=== PATIENT | female | born 1955 | race Hispanic/Latino ===

== ENCOUNTER → 2020-07-21 | Outpatient (CLI) | payer OTHER | END | disposition home or self-care (01) | LOC: RAH 11:20 | PROVIDERS: ATTEND Internal Medicine | DX: Z12.31 Encounter for screening mammogram for malignant neoplasm of breast (principal) | CPT/HCPCS: 77067 ==

== ENCOUNTER → 2021-07-04 | Outpatient (CLI) | payer OTHER | END | disposition home or self-care (01) | LOC: SHCH 12:49 | PROVIDERS: ATTEND Internal Medicine Cardiovascular Disease | DX: I87.2 Venous insufficiency (chronic) (peripheral) (principal); R06.09 Other forms of dyspnea; E78.5 Hyperlipidemia, unspecified; I10 Essential (primary) hypertension | CPT/HCPCS: 93306; 93356; 93970 ==

== ENCOUNTER → 2022-09-10 | Outpatient (CLI) | payer OTHER | END | disposition home or self-care (01) | LOC: RAH 10:24 | PROVIDERS: ATTEND Internal Medicine | DX: Z12.31 Encounter for screening mammogram for malignant neoplasm of breast (principal) | CPT/HCPCS: 77067 ==

== ENCOUNTER → 2022-09-30 | Outpatient (CLI) | payer OTHER | END | disposition home or self-care (01) | LOC: SHCH 13:47 | PROVIDERS: ATTEND Internal Medicine Cardiovascular Disease | DX: I87.2 Venous insufficiency (chronic) (peripheral) (principal) | CPT/HCPCS: 93970 ==

== ENCOUNTER → 2024-06-10 | Outpatient (CLI) | payer OTHER ==
--- NOTE | 2024-06-10 11:21 | HMCIMG ---
LUMBAR SPINE 2-3VWS HISTORY: Low back pain COMPARISON: None FINDINGS: 3 images of lumbar spine were obtained. Disc space narrowing is seen at L2-3 level. There is mild dextroscoliosis. Mild grade 1 anterolisthesis is seen at the L4-5 level. Bilateral iliac stents are seen. There are degenerative changes with lumbar spine spondylosis. There is straightening of normal lordotic curvature which may be related to muscle spasm or positioning. No loss of vertebral height is seen. No fracture or dislocation is seen. Degenerative changes are seen. IMPRESSION: 1. No fracture is seen. DJD with mild scoliosis.
--- NOTE | 2024-06-10 11:23 | HMCIMG ---
KNEE 3VWS RT HISTORY: Right knee pain COMPARISON: None TECHNIQUE: 3 images of right knee were obtained. 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 Clinical correlation is recommended for traumatic process. Right knee joint space narrowing is seen. There is no acute displaced fracture or dislocation. Degenerative changes are seen. IMPRESSION: 1. Findings as described above.
== END | disposition home or self-care (01) ==
LOC: RAH 09:43
PROVIDERS: ATTEND Internal Medicine
DX: M17.11 Unilateral primary osteoarthritis, right knee (principal); M47.816 Spondylosis without myelopathy or radiculopathy, lumbar region; M41.86 Other forms of scoliosis, lumbar region; M48.061 Spinal stenosis, lumbar region without neurogenic claudication; M54.50 Low back pain, unspecified; M25.561 Pain in right knee
CPT/HCPCS: 72100; 73562

== ENCOUNTER → 2024-09-13 | Outpatient (CLI) | payer OTHER ==
--- NOTE | 2024-09-13 11:36 | HMCIMG ---
MAMMO SCREENING BILATERAL HISTORY: Screening mammogram. COMPARISON: 09/11/2023 TECHNIQUE: Bilateral screening mammogram with CAD was performed with craniocaudal and mediolateral oblique projections. FINDINGS: There are scattered areas of fibroglandular density. There is no evidence of a dominant mass, or suspicious microcalcification. There is no evidence of nipple retraction or skin thickening. IMPRESSION: 1. Stable mammogram. Patient was entered into a reminder system with a target due date for their next mammogram. BI-RADS: CATEGORY 2: BENIGN FINDINGS Recommend monthly self breast exam as well as annual clinical examination. A negative x-ray should not delay biopsy if a dominant or clinically suspicious mass is present, since 8-10% of cancers are not identified by mammography. Dense breasts particularly, may obscure an underlying neoplasm. Some of these may be detected clinically and therefore, clinical examination is an essential part of breast evaluation.
== END | disposition home or self-care (01) ==
LOC: RAH 10:46
PROVIDERS: ATTEND Internal Medicine
DX: Z12.31 Encounter for screening mammogram for malignant neoplasm of breast (principal); R92.323 Mammographic fibroglandular density, bilateral breasts
CPT/HCPCS: 77067

== ENCOUNTER → 2024-12-14 | Outpatient (CLI) | payer OTHER ==
--- NOTE | 2024-12-14 09:37 | HMCIMG ---
BONE DENSITOMETRY: HISTORY: Age-related osteoporosis without current pathological fracture Comparison: none FINDINGS: Spine was not evaluated. Arterial BMD measured at Left Femoral Neck is 0.689 g/cm2 with a T-score of -1.6 Bone density is between 10 and 25% below young normal. This patient is considered osteopenic. Fracture risk is moderate. BMD measured at Left Femoral Total is 0.752 g/cm2 with a T-score of -1.6 Bone density is between 10 and 25% below young normal. This patient is considered osteopenic. Fracture risk is moderate. IMPRESSION: Osteopenia. Treatment and follow-up recommended.
== END | disposition home or self-care (01) ==
LOC: RAH 08:03
PROVIDERS: ATTEND Internal Medicine
DX: M85.852 Other specified disorders of bone density and structure, left thigh (principal); M81.0 Age-related osteoporosis without current pathological fracture; N95.9 Unspecified menopausal and perimenopausal disorder
CPT/HCPCS: 77080

== ENCOUNTER → 2025-06-03 | Outpatient (CLI) | payer OTHER ==
--- NOTE | 2025-06-03 13:28 | HMCIMG ---
EXAM: US Abdomen complete CLINICAL HISTORY: unspecified abdominal pain. TECHNIQUE: Real-time ultrasound of the abdomen (complete) with image documentation. COMPARISON: None provided. FINDINGS: LIVER: A left hepatic lobe anechoic structure is seen measuring 2.6 x 2.6 x 2.2 cm most likely simple hepatic cyst. No biliary dilatation. The liver contours are smooth. The liver is seen measuring 12.7 cm with increased parenchymal echogenicity. GALLBLADDER: The gallbladder is normal in appearance. No gallstone or wall thickening. Normal gallbladder wall thickness measuring 1.0 mm. COMMON BILE DUCT: No dilation. The common bile duct is seen measuring 5 mm. PANCREAS: Unremarkable where visualized. KIDNEYS: Normal renal contours. No renal mass or calculus. No hydronephrosis. Right kidney measures 10.3 x 4.3 x 4.6 cm. Left kidney measures 9.4 x 5.1 x 5.2 cm. Left renal simple cyst is noted measuring 1.6 x 1.2 cm. SPLEEN: Normal in size and echogenicity. No mass identified. The spleen seen measuring 8.3 cm AORTA: No aneurysm. IVC: Unremarkable as visualized. MISCELLANEOUS: No other significant findings identified. IMPRESSION: 1. A left hepatic lobe anechoic structure is seen measuring 2.6 x 2.6 x 2.2 cm most likely simple hepatic cyst. Diffuse hepatic steatosis. 2. The gallbladder is normal in appearance. No gallstone or wall thickening. 3. Left renal simple cyst is noted measuring 1.6 x 1.2 cm. 4. No ascites identified. /[place]
--- NOTE | 2025-06-03 18:05 | HMCIMG ---
EXAM: US Pelvis, Complete. CLINICAL HISTORY: Unspecified abdominal pain. TECHNIQUE: Transabdominal pelvic ultrasound (complete) with image documentation. COMPARISON: None provided. FINDINGS: ENDOMETRIUM: The endometrial lining measures 2 mm. UTERUS/CERVIX: The uterus measures 7.4 x 3.6 x 3 cm. Few calcified myometrial vessels are present. No fibroid detected. RIGHT OVARY: The right ovary is obscured. LEFT OVARY: The left ovary is obscured. FREE FLUID: No free fluid is present within the cul-de-sac. IMPRESSION: 1. No acute findings. /[place]
== END | disposition home or self-care (01) ==
LOC: RAH 08:46
PROVIDERS: ATTEND Internal Medicine
DX: N28.1 Cyst of kidney, acquired (principal); K76.0 Fatty (change of) liver, not elsewhere classified; R10.9 Unspecified abdominal pain
CPT/HCPCS: 76700; 76856